=== PATIENT | male | born 1950 | race Caucasian/White ===

== ENCOUNTER 2018-02-21 08:49 | Emergency (ER) | payer OTHER ==
[~2018-02-21] VITALS: Ht 149.9 cm; Wt 83.5 kg
[~2018-02-21 08:49] MED LIST: ATORVASTATIN CA10 MG PO; IRBESARTAN-HCT1 EAC1 PO; NORVASC10 MG PO; OMEGA 3 500 SO1 EACH PO; SYNTHROID100 MCG PO; TAMS0.4C PO; TOPROL XL50 MG PO
[2018-02-21] MEDS ORDERED: LISINOPRIL10 MG (09:07)
[2018-02-21] MEDS ORDERED: PANTOPRAZOLE SO40 MG (09:07)
[2018-02-21] MEDS ORDERED: ALDACTONE50 MG (09:07)
[2018-02-21] MEDS ORDERED: CIPRO500 MG PO (12:53)
[2018-02-21] MEDS ORDERED: PYRIDIUM100 MG PO (12:53)
== END 2018-02-21 13:15 | disposition home or self-care (01) ==
LOC: ER 08:49
DX: N39.0 Urinary tract infection, site not specified (principal)

== ENCOUNTER 2018-09-15 06:46 | Emergency (ER) | payer OTHER ==
[~2018-09-15] VITALS: Ht 149.9 cm; Wt 81.6 kg
[~2018-09-15 06:46] MED LIST changes: +ALDACTONE50 MG; +CIPRO500 MG PO; +LISINOPRIL10 MG; +PANTOPRAZOLE SO40 MG; +PYRIDIUM100 MG PO
== END 2018-09-15 10:35 | disposition home or self-care (01) ==
LOC: ER 06:46
DX: M10.071 Idiopathic gout, right ankle and foot (principal)

== ENCOUNTER 2018-12-17 08:37 | Emergency (ER) | payer OTHER ==
[~2018-12-17] VITALS: Ht 149.9 cm; Wt 81.6 kg
[2018-12-17] MEDS ORDERED: SYNTHROID75 MCG PO (09:00)
[2018-12-17] MEDS ORDERED: ZYLOPRIM100 M1 PO (09:01)
[2018-12-17] MEDS ORDERED: CELEBREX100 MG PO (10:09)
== END 2018-12-17 10:31 | disposition home or self-care (01) ==
LOC: ER 08:37
DX: M10.062 Idiopathic gout, left knee (principal); M10.071 Idiopathic gout, right ankle and foot

== ENCOUNTER → 2019-01-18 | Emergency (ER) | payer OTHER ==
[~2019-01-18] VITALS: Ht 149.9 cm; Wt 80.7 kg
[~2019-01-18] MED LIST changes: +CELEBREX100 MG PO; +SYNTHROID75 MCG PO; +ZYLOPRIM100 M1 PO
== END | disposition home or self-care (01) ==
LOC: ER 20:59
DX: M25.562 Pain in left knee (principal)

== ENCOUNTER 2019-09-28 13:09 | Emergency (ER) | payer OTHER ==
[~2019-09-28] VITALS: Ht 149.9 cm; Wt 82.6 kg
[2019-09-28] MEDS ORDERED: PROTONIX40 MG PO (13:33)
[2019-09-28] MEDS ORDERED: ZYLOPRIM100 M1 PO (13:34)
[2019-09-28] MEDS ORDERED: ZITHROMAX500 MG PO (18:38)
[2019-09-28] MEDS ORDERED: TUSNEL LIQUID178 ML PO (18:38)
[2019-09-28] MEDS ORDERED: DOLOGEN CAPLET1 EACH PO (18:38)
== END 2019-09-28 18:46 | disposition home or self-care (01) ==
LOC: ER 13:09
DX: B34.9 Viral infection, unspecified (principal)

== ENCOUNTER 2023-11-03 05:00 | Day surgery (SDC) | payer OTHER ==
[~2023-11-03 05:00] MED LIST changes: +ATACAND32 MG PO; +DOLOGEN CAPLET1 EACH PO; +LOVAZA1 GM PO; +PROTONIX40 MG PO; +TUSNEL LIQUID178 ML PO; +ZITHROMAX500 MG PO
== END 2023-11-03 12:30 | disposition home or self-care (01) ==
LOC: CIR.AMB 05:00
PROVIDERS: ATTEND Colon & Rectal Surgery
DX: D12.9 Benign neoplasm of anus and anal canal (principal); K64.8 Other hemorrhoids; K64.1 Second degree hemorrhoids; Z88.6 Allergy status to analgesic agent; K62.89 Other specified diseases of anus and rectum